=== PATIENT | female | born 1980 | race Caucasian/White ===

== ENCOUNTER 2016-08-11 10:34 | Emergency (ER) | payer OTHER ==
[2016-08-11] MEDS ORDERED: Amoxicillin/Clavulanate TAB* 875 MG PO ONE (11:53)
[2016-08-11] MEDS ORDERED: HYDROcodone/ACETAMIN 5-325 MG* 1 TAB PO ONE (11:55)
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
[2016-08-11 12:55] VITALS: BP 105/84
== END 2016-08-11 12:52 | disposition home or self-care (01) ==
LOC: ED 10:34
DX: K02.9 Dental caries, unspecified (principal); F17.200 Nicotine dependence, unspecified, uncomplicated
CPT/HCPCS: 99282; A9270-GY

== ENCOUNTER 2017-01-12 20:57 | Emergency (ER) | payer OTHER ==
[2017-01-12 21:03] VITALS: BP 129/83
[2017-01-12] MEDS ORDERED: Ibuprofen TAB* 600 MG PO ONE (21:40)
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
== END 2017-01-12 23:18 | disposition home or self-care (01) ==
LOC: ED 20:57
DX: S02.2XXA Fracture of nasal bones, initial encounter for closed fracture (principal); Y09 Assault by unspecified means; Y93.9 Activity, unspecified; Y92.9 Unspecified place or not applicable; F17.210 Nicotine dependence, cigarettes, uncomplicated
CPT/HCPCS: 70486; 99282; A9270-GY

== ENCOUNTER 2017-06-08 21:16 | Emergency (ER) | payer OTHER ==
[2017-06-08 21:19] VITALS: BP 122/76
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
== END 2017-06-08 23:54 | disposition home or self-care (01) ==
LOC: ED 21:16
DX: S02.2XXA Fracture of nasal bones, initial encounter for closed fracture (principal); Z72.0 Tobacco use; W22.8XXA Striking against or struck by other objects, initial encounter; Y92.9 Unspecified place or not applicable
CPT/HCPCS: 70160; 99281

== ENCOUNTER 2017-07-19 12:43 | Emergency (ER) | payer OTHER ==
[2017-07-19 13:24] VITALS: BP 112/79
== END 2017-07-19 14:53 | disposition left against medical advice (07) ==
LOC: UCEAST 12:43
DX: J34.89 Other specified disorders of nose and nasal sinuses (principal); Z53.21 Procedure and treatment not carried out due to patient leaving prior to being seen by health care provider

== ENCOUNTER 2017-07-20 09:55 | Emergency (ER) | payer OTHER ==
[2017-07-20 10:17] VITALS: BP 116/80
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
== END 2017-07-20 10:35 | disposition home or self-care (01) ==
LOC: UCEAST 09:55
DX: J32.9 Chronic sinusitis, unspecified (principal); F17.210 Nicotine dependence, cigarettes, uncomplicated
CPT/HCPCS: 99212; G0463

== ENCOUNTER 2017-08-13 03:13 | Emergency (ER) | payer OTHER ==
[2017-08-13] MEDS ORDERED: Ondansetron ODT TAB* 4 MG ONE (03:30)
[2017-08-13] MEDS ORDERED: Ondansetron ODT TAB* 4 MG PO ONE (03:36)
[2017-08-13] MEDS ORDERED: Tetan/Diph/Pertus SYR(Tdap)* 0.5 ML SYR(BOOSTRIX) use SYR IM ONE (03:41)
[2017-08-13] MEDS ORDERED: HYDROcodone/ACETAMIN 5-325 MG* 1 TAB PO ONE (04:48)
[2017-08-13 05:39] VITALS: BP 125/76
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
== END 2017-08-13 05:35 | disposition home or self-care (01) ==
LOC: ED 03:13
DX: S09.90XA Unspecified injury of head, initial encounter (principal); S01.81XA Laceration without foreign body of other part of head, initial encounter; Y04.8XXA Assault by other bodily force, initial encounter; Y93.89 Activity, other specified; Y92.003 Bedroom of unspecified non-institutional (private) residence as the place of occurrence of the external cause; Z23 Encounter for immunization; M54.2 Cervicalgia; R11.0 Nausea; J45.909 Unspecified asthma, uncomplicated; F17.210 Nicotine dependence, cigarettes, uncomplicated
CPT/HCPCS: 12013; 70450; 90471; 90715; 99282; A9270-GY

== ENCOUNTER 2018-02-14 14:29 | Emergency (ER) | payer OTHER ==
[2018-02-14 14:50] VITALS: BP 128/82
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
== END 2018-02-14 15:02 | disposition home or self-care (01) ==
LOC: UCEAST 14:29
DX: J06.9 Acute upper respiratory infection, unspecified (principal); F17.210 Nicotine dependence, cigarettes, uncomplicated
CPT/HCPCS: 99212; G0463

== ENCOUNTER 2019-02-26 12:07 | Emergency (ER) | payer SELFPAY ==
[2019-02-26 12:50] VITALS: BP 118/69
[2019-02-26] MEDS ORDERED: Ibuprofen TAB* 600 MG PO ONE (13:35)
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
== END 2019-02-26 13:50 | disposition home or self-care (01) ==
LOC: UCEAST 12:07
DX: S60.222A Contusion of left hand, initial encounter (principal); J45.909 Unspecified asthma, uncomplicated; F17.210 Nicotine dependence, cigarettes, uncomplicated; W22.8XXA Striking against or struck by other objects, initial encounter; Y92.9 Unspecified place or not applicable
CPT/HCPCS: 99213; A9270-GY; G0463